=== PATIENT | male | born 1960 | race Caucasian/White ===

== ENCOUNTER 2018-07-26 12:19 | Emergency (ER) | payer OTHER ==
[~2018-07-26 12:19] MED LIST: ATOR-2 PO; CARV25TA PO; DIGO125T87 PO; GLIP10TA9 PO; LISI40TA4 PO; METF-446 PO; RIVA20TA PO; SPIR25TA6 PO
[2018-07-26 12:39] LABS: BASOPHILS % (AUTO) 1.2 % (0.0-5.0); EOSINOPHILS % (AUTO) 1.8 % (0.0-8.0); HEMATOCRIT 48.2 % (42-54); LYMPHOCYTES % (AUTO) 40.9 % (21.0-51.0); MEAN CORPUSCULAR HEMOGLOBIN 31.9 pg (27.0-33.0); MEAN CORPUSCULAR HGB CONC 34.4 g/dL (32.0-36.0); MEAN CORPUSCULAR VOLUME 92.7 fL (79-99); MONOCYTES % (AUTO) 9.6 % (3.0-13.0); NEUTROPHILS % (AUTO) 46.5 % (40.0-77.0); PLATELET COUNT (AUTO) 258 K/uL (130-400); RED CELL DISTRIBUTION WIDTH 13.7 % (11.0-15.5); WHITE BLOOD COUNT (AUTO) 10.5 K/uL (4.8-10.8)
[2018-07-26 12:47] LABS: CREATININE 1.2 mg/dL (0.5-1.5); POTASSIUM 3.6 mmol/L (3.5-5.1)
[2018-07-26 12:52] LABS: INR 1.14 (0.85-1.15); MAGNESIUM 1.5 mg/dL (1.80-2.40); PROTHROMBIN TIME 11.9 SEC (9.6-11.6)
[2018-07-26] MEDS ORDERED: DIGOXIN 250 MCG/ML 2ML AMP ONE (14:09)
== END 2018-07-26 14:32 | disposition home or self-care (01) ==
LOC: EDH 12:19
DX: T82.198A Other mechanical complication of other cardiac electronic device, initial encounter (principal); I48.91 Unspecified atrial fibrillation; E11.9 Type 2 diabetes mellitus without complications; I25.2 Old myocardial infarction; Z95.0 Presence of cardiac pacemaker; Z98.890 Other specified postprocedural states; Z72.0 Tobacco use
CPT/HCPCS: 36415; 71045; 80048; 82550; 83735; 84484; 85025; 85610; 85730; 93005; 96374; 99291; J1160

== ENCOUNTER 2020-01-30 05:31 | Observation (INO) | payer OTHER ==
[2020-01-30] VITALS (9 sets, daily range): BP systolic 92–112; BP diastolic 51–71
[~2020-01-30 05:31] MED LIST changes: -CARV25TA PO; +DIGO125T71 PO; -DIGO125T87 PO; +EMPA25TA PO; +FURO40TA5 PO; -LISI40TA4 PO; +METO100T14 PO; +SACU1TAB PO; -SPIR25TA6 PO
[2020-01-30 06:25] LABS: BASOPHILS % (AUTO) 1.5 % (0.0-5.0); EOSINOPHILS % (AUTO) 3.8 % (0.0-8.0); HEMATOCRIT 49.6 % (42-54); LYMPHOCYTES % (AUTO) 34.9 % (21.0-51.0); MEAN CORPUSCULAR HEMOGLOBIN 30.9 pg (27.0-33.0); MEAN CORPUSCULAR HGB CONC 32.7 g/dL (32.0-36.0); MEAN CORPUSCULAR VOLUME 94.7 fL (79-99); MONOCYTES % (AUTO) 8.1 % (3.0-13.0); NEUTROPHILS % (AUTO) 51.3 % (40.0-77.0); PLATELET COUNT (AUTO) 241 K/uL (130-400); RED BLOOD CELL COUNT(AUTO) 5.24 MIL/uL (4.50-6.20); RED CELL DISTRIBUTION WIDTH 13.2 % (11.0-15.5); WHITE BLOOD COUNT (AUTO) 10.4 K/uL (4.8-10.8)
[2020-01-30 06:33] LABS: CREATININE 0.9 mg/dL (0.5-1.5); POTASSIUM 3.7 mmol/L (3.5-5.1)
[2020-01-30 06:43] LABS: INR 1.05 (0.85-1.15); PARTIAL THROMBOPLASTIN TIME 26.6 SEC (26.3-35.5); PROTHROMBIN TIME 11.3 SEC (9.6-11.6)
[2020-01-30] MEDS ORDERED: LIDOCAINE HCL 1% MDV 50ML VIAL ONE ×2 (08:05→12:01)
[2020-01-30] MEDS ORDERED: MEPERIDINE-PF 25 MG/ML SYG ONE ×8 (08:05→12:01)
[2020-01-30] MEDS ORDERED: BUPIVACAINE/PF 0.25% 30ML VIAL IJ ONE (08:05)
[2020-01-30] MEDS ORDERED: CEFAZOLIN SODIUM 1 GM VIAL ONE (08:05)
[2020-01-30] MEDS ORDERED: MIDAZOLAM HCL 1 MG/ML 2ML VIAL ONE ×8 (08:05→12:01)
[2020-01-30] MEDS ORDERED: IODIXANOL 320 MG/ML 100 ML VIAL ONE (09:21)
[2020-01-30] MEDS ORDERED: HEPARIN SODIUM 1000UNIT/ML 10ML VIAL ONE (12:06)
[2020-01-30] MEDS ORDERED: ACETAMINOPHEN-CODEINE 300/30MG TAB PO PRN (13:15)
--- NOTE | 2020-01-30 15:00 | NUR ---
STATUS PT RECEIVED FROM [facility] VIA BED, S/P CARDIAC ABLATION & ICD UPGRADE BY DR BRASWELL. PT TOLERATED TRANSFER WELL. NO DISTRESS NOTED. LT UPPER CHEST PRESSURES DSG DRY & INTACT. NO DRAINAGE NOTED. SLING TO LT ARM. ARM PRECAUTIONS REINFORCED@ THIS TIME. RT GROIN GAUZE & OPSITE DRY & INTACT. PUNCTURE SITE SOFT, NON-TENDER. NO BLEEDING, NO HEMATOMA NOTED. (+) BILATERAL PEDAL PULSES. BLE PINK & WARM TO TOUCH. PT INFORMED TO MAINTAIN BEDREST X 3 HRS. A/O X 3. DENIES CHEST PAIN OR DISCOMFORT. DENIES INCISIONAL PAIN. DENIES N/V AND/OR DIARRHEA. INSTRUCTED TO CALL FOR ASSISTANCE. CALL ANGÉLICA W/IN REACH.
[2020-01-30] MEDS: GLIPIZIDE 5 MG TABLET PO SCH (16:28)
[2020-01-30] MEDS: METFORMIN HCL 500 MG TABLET PO SCH (16:28)
--- NOTE | 2020-01-30 16:45 | NUR ---
STATUS BEDREST COMPLETE. LT UPPER CHEST DSG DRY & INTACT. RT GROIN DSG DRY & INTACT. NO BLEEDING, NO HEMATOMA NOTED. (+) BILATERAL PEDAL PULSES. BLE PINK & WARM TO TOUCH. PT ASSISTED TO SIT UP IN BED. TOLERATED WELL.
[2020-01-30] MEDS: METOPROLOL TARTRATE 50 MG TAB PO SCH (20:58)
[2020-01-30] MEDS: SACUBITRIL PO SCH (20:59)
[2020-01-30] MEDS: VALSARTAN PO SCH (20:59)
[2020-01-30] MEDS ORDERED: ATORVASTATIN CALCIUM 40 MG TABLET PO SCH (21:00)
[2020-01-30] MEDS ORDERED: DIGOXIN 125 MCG TABLET PO SCH (21:00)
--- NOTE | 2020-01-30 21:00 | NUR ---
PT ABLE TO AMBULATE. S/P ICD UPGRADE. SLING IN PLACE. PT AWARE OF ARM RESTRICTIONS. NO DISTRESS NOTED. NO PAIN STATED TO SITE. PT ABLE TO TAKE HOME MEDICATIONS.
[2020-01-31 03:00] VITALS: BP 96/60
[2020-01-31 05:04] LABS: EOSINOPHILS % (AUTO) 2.5 % (0.0-8.0); HEMATOCRIT 45.6 % (42-54); LYMPHOCYTES % (AUTO) 24.9 % (21.0-51.0); MEAN CORPUSCULAR HEMOGLOBIN 29.9 pg (27.0-33.0); MEAN CORPUSCULAR HGB CONC 32.2 g/dL (32.0-36.0); MEAN CORPUSCULAR VOLUME 92.7 fL (79-99); MONOCYTES % (AUTO) 8.4 % (3.0-13.0); NEUTROPHILS % (AUTO) 62.9 % (40.0-77.0); PLATELET COUNT (AUTO) 204 K/uL (130-400); RED BLOOD CELL COUNT(AUTO) 4.92 MIL/uL (4.50-6.20)
[2020-01-31 05:21] LABS: CREATININE 0.9 mg/dL (0.5-1.5); POTASSIUM 3.4 mmol/L (3.5-5.1)
[2020-01-31] MEDS ORDERED: POTASSIUM CHLORIDE 10% ELIXIR 20 MEQ/15 ML UDCUP PO PRN (06:30)
[2020-01-31] MEDS: POTASSIUM CHLORIDE 20 MEQ ERTAB PO PRN ×2 (06:45→07:44)
[2020-01-31 07:24] VITALS: BP 104/64
[2020-01-31] MEDS: METOPROLOL TARTRATE 50 MG TAB PO SCH (07:35)
[2020-01-31] MEDS: GLIPIZIDE 5 MG TABLET PO SCH (07:36)
[2020-01-31] MEDS: METFORMIN HCL 500 MG TABLET PO SCH (07:36)
[2020-01-31] MEDS: VALSARTAN PO SCH (07:37)
[2020-01-31] MEDS: SACUBITRIL PO SCH (07:37)
[2020-01-31] MEDS ORDERED: FUROSEMIDE 40 MG TABLET PO SCH (09:00)
[2020-01-31] MEDS ORDERED: EMPAGLIFLOZIN 12.5 MG PO SCH (09:00)
[2020-01-31 11:27] VITALS: BP 114/71
--- NOTE | 2020-01-31 14:05 | NUR ---
DISCHARGE INSTRUCTIONS/INFORMATION GIVEN TO PATIENT. TEACH BACK METHOD USED TO EDUCATE PATIENT ON ACTIVITY RESTRICTIONS,USE OF SLING, CHANGE IN MEDS, WOUND CARE, AND F/U APPOINTMENTS. NEW PRESCRIPTION FOR METOPROLOL HANDED TO PATIENT. IV REMOVED. TIP WAS INTACT. TELE PACK REMOVED AND RETURNED. ALL BELONGINGS PACKED AND TAKEN HOME. PATIENT WAS SAFELY WHEELED TO HIS CAR BY EMA ROBLES.
== END 2020-01-31 13:30 | disposition home or self-care (01) ==
LOC: DAH 05:31 → DAHIP 05:32 → 2AH 14:26
PROVIDERS: ADMIT Internal Medicine; ATTEND Internal Medicine
DX: I48.21 Permanent atrial fibrillation (principal); I11.0 Hypertensive heart disease with heart failure; I50.22 Chronic systolic (congestive) heart failure; I42.8 Other cardiomyopathies; I25.10 Atherosclerotic heart disease of native coronary artery without angina pectoris; E11.9 Type 2 diabetes mellitus without complications; E78.5 Hyperlipidemia, unspecified; E66.9 Obesity, unspecified; F17.200 Nicotine dependence, unspecified, uncomplicated; Z95.5 Presence of coronary angioplasty implant and graft; Z95.1 Presence of aortocoronary bypass graft; Z79.01 Long term (current) use of anticoagulants; Z79.899 Other long term (current) drug therapy
CPT/HCPCS: 33225; 33264; 36415 ×2; 71045; 80048 ×2; 82948 ×3; 85025 ×2; 85610; 85730; 93005 ×2; 93650; A4215; A4216; A4221; A4222; A4223 ×3; A4606; A4649 ×2; A4663; C1732; C1769 ×2; C1882; C1894; C1900; G0378 ×24; J0690; J1644 ×2; J2175 ×7; J2250 ×7; J3490 ×3; Q9967; 99156; 99157

== ENCOUNTER → 2020-07-14 | Outpatient (CLI) | payer OTHER ==
[~2020-07-14] MED LIST changes: -METO100T14 PO
== END | disposition home or self-care (01) ==
LOC: SHCH 14:53
PROVIDERS: ATTEND Internal Medicine Cardiovascular Disease
DX: I50.22 Chronic systolic (congestive) heart failure (principal)
CPT/HCPCS: 93306

== ENCOUNTER → 2020-07-16 | Outpatient (CLI) | payer OTHER ==
[~2020-07-16] MED LIST changes: +REGADENOSON 0.4 MG/5 ML PF SYG IVP SCH
== END | disposition home or self-care (01) ==
LOC: SHCH 07:44
PROVIDERS: ATTEND Internal Medicine Cardiovascular Disease
DX: I50.22 Chronic systolic (congestive) heart failure (principal); R06.00 Dyspnea, unspecified
CPT/HCPCS: 78452; 93017; 96374; A9500 ×2; J2785

== ENCOUNTER → 2022-12-08 | Outpatient (CLI) | payer OTHER ==
[~2022-12-08] MED LIST changes: +IOHEXOL 350 MG/ML 100ML INFUS..BTL IV ONE; -REGADENOSON 0.4 MG/5 ML PF SYG IVP SCH
== END | disposition home or self-care (01) ==
LOC: RAH 07:40
PROVIDERS: ATTEND Internal Medicine Cardiovascular Disease
DX: I50.22 Chronic systolic (congestive) heart failure (principal); I25.10 Atherosclerotic heart disease of native coronary artery without angina pectoris; I50.9 Heart failure, unspecified
CPT/HCPCS: 75574; Q9967

== ENCOUNTER → 2023-04-25 | Outpatient (CLI) | payer OTHER ==
[~2023-04-25] VITALS: Ht 182.9 cm; Wt 107.0 kg
[~2023-04-25] MED LIST changes: -IOHEXOL 350 MG/ML 100ML INFUS..BTL IV ONE; +MAGN400T29 PO; +METO100T14 PO; +SACU1TAB7 PO; +SPIR25TA6 PO
[2023-04-25 09:44] LABS: BASOPHILS % (AUTO) 1.1 % (0.0-5.0); EOSINOPHILS % (AUTO) 2.8 % (0.0-8.0); HEMATOCRIT 51.6 % (42-54); LYMPHOCYTES % (AUTO) 29.3 % (21.0-51.0); MEAN CORPUSCULAR HEMOGLOBIN 30.5 pg (27.0-33.0); MEAN CORPUSCULAR VOLUME 95.4 fL (79-99); MONOCYTES % (AUTO) 10.1 % (3.0-13.0); NEUTROPHILS % (AUTO) 56.3 % (40.0-77.0); PLATELET COUNT (AUTO) 193 K/uL (130-400); RED BLOOD CELL COUNT(AUTO) 5.41 MIL/uL (4.50-6.20); RED CELL DISTRIBUTION WIDTH 13.7 % (11.0-15.5); WHITE BLOOD COUNT (AUTO) 9.9 K/uL (4.8-10.8)
[2023-04-25 09:48] LABS: APPEARANCE,URINE CLEAR (CLEAR); BILIRUBIN,URINE NEGATIVE (NEGATIVE); COLOR,URINE LIGHT-YELLOW (YELLOW); GLUCOSE, URINE (UA) >=1000 mg/dL (NEGATIVE); KETONES,URINE NEGATIVE (NEGATIVE); LEUKOCYTE ESTERASE ,URINE 25 Leu/uL (NEGATIVE); NITRATE,URINE NEGATIVE (NEGATIVE); OCCULT BLOOD,URINE NEGATIVE (NEGATIVE); PH,URINE 5.5 (5.0-8.0); PROTEIN,URINE NEGATIVE (NEGATIVE); UROBILINOGEN,URINE 0.2 mg/dL (0.2-1.0)
[2023-04-25 09:50] LABS: MUCUS,URINE RARE LPF (None Seen); RBC,URINE 0-1 /HPF (0-1); SQUAMOUS EPITHELIAL CELL,UR RARE /HPF (0-2); WBC,URINE 0-1 /HPF (0-1)
[2023-04-25 09:56] LABS: CREATININE 0.9 mg/dL (0.5-1.5); POTASSIUM 4.7 mmol/L (3.5-5.1)
[2023-04-25 10:01] LABS: INR 1.08 (0.85-1.15); PROTHROMBIN TIME 12.5 SEC (9.6-11.6)
[2023-04-25 10:02] LABS: PARTIAL THROMBOPLASTIN TIME 32.2 SEC (26.3-35.5)
[2023-04-25 10:03] LABS: B-TYPE NATRIURETIC PEPTIDE 91 pg/mL (0-100)
[2023-04-25 15:03] VITALS: BP 101/66
== END | disposition home or self-care (01) ==
LOC: EDSTATUS 09:00 → DAH 10:00
PROVIDERS: ATTEND Internal Medicine Cardiovascular Disease
DX: Z01.810 Encounter for preprocedural cardiovascular examination (principal); I50.22 Chronic systolic (congestive) heart failure; Z79.01 Long term (current) use of anticoagulants
CPT/HCPCS: 36415; 71045; 80048; 81001; 83880; 85025; 85610; 85730; 93005

== ENCOUNTER 2023-11-25 03:37 | Emergency (ER) | payer OTHER ==
[~2023-11-25] VITALS: Ht 182.9 cm; Wt 100.2 kg
[~2023-11-25 03:37] MED LIST changes: -SACU1TAB PO
[2023-11-25 03:57] LABS: RAPID GROUP A STREP negative (NEGATIVE)
[2023-11-25 04:01] LABS: SARS-CoV-2, RNA, NAAT NEGATIVE SARS CoV-2 (NEGATIVE)
[2023-11-25 04:07] LABS: INFLUENZA TYPE A Negative For Type A (NEGATIVE); INFLUENZA TYPE B Negative For Type B (NEGATIVE)
[2023-11-25] MEDS ORDERED: AZIT500T2 PO (04:34)
[2023-11-25] MEDS ORDERED: IBUP-1493 PO (04:34)
[2023-11-25 05:01] VITALS: BP 132/76; PULSE 78; RESP 17; O2SAT 98
== END 2023-11-25 05:02 | disposition home or self-care (01) ==
LOC: EDH 03:37
DX: J02.9 Acute pharyngitis, unspecified (principal); E11.9 Type 2 diabetes mellitus without complications; E78.00 Pure hypercholesterolemia, unspecified; I48.91 Unspecified atrial fibrillation; Z79.84 Long term (current) use of oral hypoglycemic drugs; Z79.899 Other long term (current) drug therapy; Z95.1 Presence of aortocoronary bypass graft; Z95.810 Presence of automatic (implantable) cardiac defibrillator; Z20.822 Contact with and (suspected) exposure to COVID-19
CPT/HCPCS: 87635; 87804; 87880

== ENCOUNTER 2024-09-11 17:27 | Emergency (ER) | payer OTHER ==
[~2024-09-11] VITALS: Ht 182.9 cm; Wt 101.2 kg
[~2024-09-11 17:27] MED LIST changes: +AZIT500T2 PO; +GLIP10TA16 PO; -GLIP10TA9 PO; +IBUP-1493 PO
[2024-09-11 17:39] VITALS: BP 104/60; PULSE 75; RESP 20; TEMP 97.4; O2SAT 99
[2024-09-11] MEDS: ketOROlac 15MG/ML VIAL (15MG/ML) IM ONE (18:13)
[2024-09-11] MEDS ORDERED: MELO-106 PO (18:44)
--- NOTE | 2024-09-11 18:46 | ERN ---
General Chief Complaint: Arm Swelling/Redness Stated Complaint: LEFT ARM PAIN X 4 DAYS Time Seen by MD: 17:41 Time Seen by Midlevel: 17:41 Source: patient History of Present Illness Initial Comments 64-year-old male who presents to the ED due to left elbow pain onset four days ago. Patient reports he plays a lot of golf and was unable to finish the round of golf today due to the pain. Reports the pain is at the elbow radiates down and up the arm. Denies any numbness, tingling, fever or further associated symptoms. PMHx HTN, DM Allergies: Coded Allergies: No Known Drug Allergies (Unverified Allergy, Unknown, 12/30/16) Home Meds Active Scripts Meloxicam (Meloxicam) 7.5 Mg Tablet, 7.5 MG PO DAILY for 5 Days, #5 TAB Prov:KATIE SALDANA 09/11/24 Ibuprofen (Motrin/Advil) 800 Mg Tab, 800 MG PO TID, #30 TAB Prov:QASIM AVENDANO MD 11/25/23 Azithromycin (Zithromax Tri-Sundeep) 500 Mg Tablet, 500 MG PO DAILY, #3 TAB Prov:QASIM AVENDANO MD 11/25/23 Reported Medications Magnesium Oxide (Magox 400) 400 Mg Tablet, 400 MG PO DAILY, TAB 04/25/23 Sacubitril/Valsartan (Entresto 49 mg-51 mg Tablet) 1 Each Tablet, 0.5 EACH PO BID, TAB 04/25/23 Spironolactone (Spironolactone) 25 Mg Tablet, 12.5 MG PO DAILY, TAB 04/25/23 Metoprolol Tartrate (Metoprolol Tartrate) 100 Mg Tablet, 50 MG PO BID, TAB 04/25/23 Empagliflozin (Jardiance) 25 Mg Tablet, 12.5 MG PO DAILY, TAB 01/29/20 Furosemide (Furosemide) 40 Mg Tablet, 20 MG PO DAILY, TAB 01/29/20 Atorvastatin Calcium (Atorvastatin Calcium) 80 Mg Tablet, 80 MG PO HS, TAB 12/30/16 Digoxin (Digoxin) 125 Mcg Tablet, 125 MCG PO HS, TAB 12/30/16 Glipizide (Glipizide) 10 Mg Tablet, 5 MG PO BIDMEALS, TAB 12/30/16 Metformin HCl (Metformin HCl) 1,000 Mg Tablet, 1000 MG PO BIDMEALS, TAB 12/30/16 Rivaroxaban (Xarelto) 20 Mg Tablet, 20 MG PO HS, TAB 12/30/16 Past Medical History Past Medical History: CHF Past Surgical History: Other Surgical History Other: TOO MANY BROKEN BONES Family History Family History: HTN Social History Social History: Negative, Lives with family ROS Dictation Constitutional: Negative for fever,chills, and weight loss Eyes: Negative for injury, pain,redness, and discharge ENT: Negative for injury,pain or swelling Cardiovascular: Negative for chest pain, palpitations, and edema Respiratory: Negative for shortness of breath, cough, and wheezing, Abdomen/GI: Negative for abdominal pain, nausea, vomiting, diarrhea, and constipation Back: Negative for injury and pain : Negative for painful urination, bleeding or discharge MS/Extremity: Positive for left arm pain Negative for injury and deformity Skin: Negative for rash, and discoloration Neuro: Negative for headache, weakness, numbness, tingling, and seizure Psych: Negative for suicide ideation, homicidal ideation, and hallucinations Physical Exam Physical Exam Dictation General: awake, alert, no acute distress Head/Face: Normocephalic, atraumatic Eyes: normal conjunctiva Neck: Normal range of motion, supple Cardiovascular: RRR, normal S1/S2, normal peripheral perfusion Respiratory: no respiratory distress Skin: Warm, dry, normal turgor, no rash MS/Extremity: Limited active range of motion of the left shoulder due to pain normal passive range of motion, tenderness to palpation of the left lateral epicondyle, full range of motion of the left elbow, pulses equal, no cyanosis, neurovascular intact, FROM Neuro: COAx4, GCS 15, no neurological deficits, normal gait, Psych: Normal behavior, mood, and affect normal MDM MDM: Differential diagnosis: Left elbow pain, sprain, strain, fracture, lateral epicondylitis Rationale: 64-year-old male who presents to the ED due to left elbow pain onset four days ago. Patient reports he plays a lot of golf and was unable to finish the round of golf today due to the pain. Reports the pain is at the elbow radiates down and up the arm. Denies any numbness, tingling, fever or further associated symptoms. PMHx HTN, DM Left elbow and shoulder x-rays obtained with a no fractures or deformities noted. Per physical examination patient has full range of motion tender to lateral epicondyle consistent with lateral epicondylitis. Ketorolac administere d in the ED on re-examination patient verbalized pain had improved. Patient was educated on findings and diagnosis. Rest, ice, anti-inflammatories were discussed with patient, who verbalized understanding. Advised to follow up with PCP. Return to the ED if any worsening symptoms. Patient stable for discharge. There are no social concerns with this patient. I independently interpreted the test that were performed, results were reviewed by me and considered findings on radiology if ordered. Medical management and examination interpretation discussions were had by me with other qualified healthcare professionals as indicated for the patient's care. ED Course Orders Procedure Category Date Status Time Ketorolac PHA 09/11/24 Complete Tromethamine 15mg/Ml 18:00 Shoulder Comp 2+Vws Lt RAD 09/11/24 Taken 17:49 Elbow Comp 3+Vws Lt RAD 09/11/24 Taken 17:49 Current Medications Medications (Trade) Dose Ordered Sig/[place] Route PRN Reason Start Time Stop Time Status Last Admin Dose Admin Ketorolac Tromethamine (toRADol) 15 mg ONCE ONCE IM 09/11/24 18:00 09/11/24 18:01 DC 09/11/24 18:13 Vital Signs Date Time Temp Pulse Resp B/P (MAP) Pulse Ox O2 Delivery O2 Flow Rate FiO2 09/11/24 17:39 97.3 75 20 104/60 99 Room Air* 0 21 09/11/24 17:28 97.3 75 20 104/60 99 Room Air 0 DX & DISP Disposition: Discharge Departure Impression: Primary Impression: Lateral epicondylitis, left elbow Additional Impression: Sprain of elbow, left Condition: Stable Scripts Meloxicam (Meloxicam) 7.5 Mg Tablet 7.5 MG PO DAILY for 5 Days, #5 TAB Prov: KATIE SALDANA 09/11/24 Additional Instructions: Discharge home. Rest. Follow up with primary care in 24 hours. Return to the ER for any acute changes or worsening symptoms. If any medications were prescribed take as directed. Okay to continue home medications unless otherwise discussed during your visit in the emergency room today. Patient was also advised to follow-up with primary care physician in 1 to 2 days for continued monitoring. Referrals: SELF,REFERRAL (PCP) I participated in the following activities of this patient's care: For this patient encounter, I reviewed the PA or SINGER SONGWRITER documentation, treatment plan, and medical decision making. I did not have [id number] time with this patient. I will sign as the reviewing DrCyndi And agree with the treatment plan and disposition. KATIE SALDANA Sep 11, 2024 18:46 HAYLEE GRANADO DO Sep 12, 2024 07:34
--- NOTE | 2024-09-12 08:39 | HMCIMG ---
SHOULDER COMP 2+VWS LT REASON: PAIN TECHNIQUE: 2 views were obtained. FINDINGS: There is no evidence of fracture or dislocation. There is no joint effusion. The soft tissues appear unremarkable. There is no evidence of a radiopaque foreign body. Pacemaker is noted. IMPRESSION: No acute findings.
--- NOTE | 2024-09-12 08:40 | HMCIMG ---
ELBOW COMP 3+VWS LT REASON: PAIN TECHNIQUE: 3 views were obtained. FINDINGS: There is no evidence of fracture or dislocation. There is no joint effusion. The soft tissues appear unremarkable. There is no evidence of a radiopaque foreign body. IMPRESSION: No acute findings.
== END 2024-09-11 18:49 | disposition home or self-care (01) ==
LOC: EDH 17:27
DX: S53.402A Unspecified sprain of left elbow, initial encounter (principal); M77.12 Lateral epicondylitis, left elbow; E11.9 Type 2 diabetes mellitus without complications; I11.0 Hypertensive heart disease with heart failure; I50.9 Heart failure, unspecified; Z79.1 Long term (current) use of non-steroidal anti-inflammatories (NSAID); Z79.84 Long term (current) use of oral hypoglycemic drugs; Z79.899 Other long term (current) drug therapy; X58.XXXA Exposure to other specified factors, initial encounter; Y93.89 Activity, other specified; Y92.89 Other specified places as the place of occurrence of the external cause; Y99.8 Other external cause status
CPT/HCPCS: 99284; 73080; 73030; 96372; J1885